=== PATIENT | female | born 1965 | race Caucasian/White ===

== ENCOUNTER 2022-06-03 12:00 | Emergency (ER) | payer BC | END 2022-06-03 13:24 | disposition home or self-care (01) | LOC: JD.ED 12:00 | DX: S10.93XA Contusion of unspecified part of neck, initial encounter (principal); Z79.899 Other long term (current) drug therapy; W01.10XA Fall on same level from slipping, tripping and stumbling with subsequent striking against unspecified object, initial encounter | CPT/HCPCS: 72125; 72125-26; 99284 ==